=== PATIENT | female | born 1995 | race Caucasian/White ===

== ENCOUNTER 2020-05-24 00:25 | Emergency (ER) | payer OTHER ==
[~2020-05-24] VITALS: Ht 157.5 cm; Wt 68.2 kg
[2020-05-24 00:46] VITALS: BP 154/77
[2020-05-24] MEDS ORDERED: LOPR1TAB6 PO (01:12)
[2020-05-24] MEDS ORDERED: METOPROLOL TART 25 MG TABLET PO ONE (01:15)
--- NOTE | 2020-06-10 08:01 | ECGEPIP ---
[facility] - ED Test Date: 2020-05-24 Pat Name: YARITZA BATES Department: Room: 10 Gender: Female Superintendent Stations: ESTELITA : 1995 Requested By: ETHEL Order Number: [id number] Reading MD: Yobani Goldberg Measurements Intervals [place] Rate: 104 P: 18 MN: 136 QRS: 25 QRSD: 86 T: 3 QT: 340 QTc: 448 Interpretive Statements SINUS TACHYCARDIA ABNORMAL RHYTHM ECG SINUS RHYTHM PRWP SEE SCANNED DOWNTIME REPORT
== END 2020-05-24 01:29 | disposition home or self-care (01) ==
LOC: EDSEX 00:25 → M ED 00:25 → EDBD 00:25 → M ED 01:29
DX: Z86.79 Personal history of other diseases of the circulatory system (principal); R00.0 Tachycardia, unspecified; R94.31 Abnormal electrocardiogram [ECG] [EKG]; F32.9 Major depressive disorder, single episode, unspecified; Z79.899 Other long term (current) drug therapy

== ENCOUNTER 2020-06-20 02:50 | Emergency (ER) | payer OTHER ==
[~2020-06-20] VITALS: Ht 157.5 cm; Wt 85.7 kg
[~2020-06-20 02:50] MED LIST: LOPR1TAB6 PO
[2020-06-20 03:58] LABS: BASO % 0.5 % (0.0-1.0); EOS # 0.1 10^3/uL (0.0-0.5); EOS % 1.8 % (0.0-3.0); LYMPH # 1.9 10^3/uL (1.5-5.0); LYMPH % 32.4 % (24.0-44.0); MEAN CORPUSCULAR HEMOGLOBIN 29.1 pg (27.0-33.0); MEAN CORPUSCULAR HGB CONC 33.3 g/dl (32.0-36.5); MEAN CORPUSCULAR VOLUME 87.4 fl (80.0-96.0); MONO # 0.5 10^3/uL (0.0-0.8); MONO % 7.7 % (0.0-5.0); NEUTROPHILS # 3.4 10^3/uL (1.5-8.5); NEUTROPHILS % 57.1 % (36.0-66.0); PLATELET COUNT, AUTOMATED 267 10^3/uL (150-450); RED BLOOD COUNT 4.46 10^6/uL (4.00-5.40)
[2020-06-20] MEDS ORDERED: GI COCKTAIL 50ML BTL(HYOSCYAMINE/MAALOX/LIDOCAINE VISCOUS)(1:3:1) PO ONE (04:00)
[2020-06-20 04:17] LABS: ALT/SGPT 33 U/L (12-78); BILIRUBIN,DIRECT < 0.1 MG/DL (0.0-0.2); BILIRUBIN,TOTAL 0.3 MG/DL (0.2-1.0); LIPASE 221 U/L (73-393); TOTAL PROTEIN 7.5 GM/DL (6.4-8.2)
[2020-06-20 05:42] VITALS: BP 139/88
== END 2020-06-20 06:23 | disposition home or self-care (01) ==
LOC: M ED 02:50
DX: R10.13 Epigastric pain (principal); I48.91 Unspecified atrial fibrillation; K27.9 Peptic ulcer, site unspecified, unspecified as acute or chronic, without hemorrhage or perforation; Z87.448 Personal history of other diseases of urinary system; F17.200 Nicotine dependence, unspecified, uncomplicated; Z88.8 Allergy status to other drugs, medicaments and biological substances

== ENCOUNTER 2020-09-13 13:12 | Emergency (ER) | payer OTHER ==
[~2020-09-13] VITALS: Ht 157.5 cm; Wt 85.3 kg
[2020-09-13] MEDS ORDERED: SERO50TA PO (13:24)
[2020-09-13] MEDS ORDERED: XANA1TAB2 PO ×2 (13:24→15:07)
[2020-09-13] MEDS ORDERED: ZOLO50TA PO (13:24)
[2020-09-13 14:58] VITALS: BP 114/73
== END 2020-09-13 15:19 | disposition home or self-care (01) ==
LOC: M ED 13:12
DX: Z76.0 Encounter for issue of repeat prescription (principal); F17.200 Nicotine dependence, unspecified, uncomplicated; Z79.899 Other long term (current) drug therapy; Z88.8 Allergy status to other drugs, medicaments and biological substances